=== PATIENT | male | born 1985 | race Caucasian/White ===

== ENCOUNTER 2020-03-20 17:27 | Emergency (ER) | payer BC ==
[2020-03-20] MEDS ORDERED: Sodium Chloride 0.9% 10 ML Syringe FLUSH PRN (17:54)
[2020-03-20] MEDS ORDERED: Labetalol 100 MG/20 ML MDV IVPUSH ONE ×3 (18:10→19:01)
[2020-03-20] MEDS ORDERED: amLODIPine 10 MG Tab PO ONE (19:02)
[2020-03-20] MEDS ORDERED: Hydrochlorothiazide 25 MG Tab PO ONE (19:02)
--- NOTE | 2020-03-20 19:55 | EDM.PDOC ---
ED HPI GENERAL MEDICAL PROBLEM - General Chief Complaint: Cardiovascular Problem Stated Complaint: HIGH BLOOD PRESSURE Time Seen by Provider: 03/20/20 17:39 Source of Information: Reports: Patient, RN Notes Reviewed History Limitations: Reports: No Limitations - History of Present Illness INITIAL COMMENTS - FREE TEXT/NARRATIVE: Patient is a 35-year-old male presenting to the emergency department with complaints of intermittent nosebleeds and elevated blood pressure. He was seen at [facility] prior to coming here. Blood pressure on triage was found to be 202/143. Patient states he does have a history of hypertension and that he was previously taking on lisinopril, hydrochlorothiazide, and amlodipine, however he stopped taking them in November. He denies any chest pain, headache, vision changes, or dizziness. Patient states that he had a bloody nose last evening and then a few today. - Related Data Allergies Allergy/AdvReac Type Severity Reaction Status Date / Time No Known Allergies Allergy Verified 03/20/20 17:38 Home Meds: Home Meds amLODIPine [Norvasc] 5 mg PO DAILY 30 Days #30 tab 03/20/20 [Rx] hydroCHLOROthiazide [Hydrochlorothiazide] 25 mg PO DAILY #30 tablet 03/20/20 [Rx] Past Medical History HEENT History: Reports: Epistaxis, Impaired Vision Cardiovascular History: Reports: Hypertension - Infectious Disease History Infectious Disease History: Reports: Chicken Pox, Novel Coronavirus Social & Family History - Family History Family Medical History: No Pertinent Family History Cardiac: Reports: Hypertension - Tobacco Use Tobacco Use Status *Q: Current Every Day Tobacco User Years of Tobacco use: 10 Packs/Tins Daily: 1 Used Tobacco, but Quit: No Second Hand Smoke Exposure: Yes - Caffeine Use Caffeine Use: Reports: Coffee, Soda - Recreational Drug Use Recreational Drug Use: No ED ROS GENERAL - Review of Systems Review Of Systems: Comprehensive ROS is negative, except as noted in HPI. ED EXAM, GENERAL - Physical Exam Exam: See Below General Appearance: Alert, WD/WN, No Apparent Distress Respiratory/Chest: No Respiratory Distress, Lungs Clear, Normal Breath Sounds, No Accessory Muscle Use, Chest Non-Tender Cardiovascular: Normal Peripheral Pulses, Regular Rate, Rhythm, No Edema, No Gallop, No JVD, No Murmur, No Rub GI/Abdominal: Normal Bowel Sounds, Soft, Non-Tender, No Organomegaly, No Distention, No Abnormal Bruit, No Mass Neurological: Alert, Oriented, CN II-XII Intact, Normal Cognition, Normal Gait, Normal Reflexes, No Motor/Sensory Deficits Psychiatric: Normal Affect, Normal Mood Skin Exam: Warm, Dry, Intact, Normal Color, No Rash #1 Interpretation EKG Date: 03/20/20 Time: 17:58 Rhythm: NSR Rate (Beats/Min): 76 [place]: Normal P-Wave: Present QRS: Normal ST-T: Normal QT: Normal Course - Vital Signs Last Recorded V/S: Last Vital Signs Temp 98.8 F 03/20/20 17:39 Pulse 77 03/20/20 17:39 Resp 16 03/20/20 17:39 BP 204/133 H 03/20/20 19:18 Pulse Ox 97 03/20/20 17:39 - Orders/Labs/Meds Orders: Active Orders 24 hr Category Date Time Status Peripheral IV Insertion Adult [OM.PC] Stat Oth 03/20/20 17:54 Ordered Labs: Laboratory Tests 03/20/20 03/20/20 Range/Units 18:08 18:08 WBC 6.00 (4.23-9.07) K/mm3 RBC 5.23 (4.63-6.08) M/mm3 Hgb 14.9 (13.7-17.5) gm/dl Hct 44.0 (40.1-51.0) % MCV 84.1 (79.0-92.2) fl MCH 28.5 (25.7-32.2) pg MCHC 33.9 (32.2-35.5) g/dl RDW Std Deviation 42.1 (35.1-43.9) fL Plt Count 227 (163-337) K/mm3 MPV 10.8 (9.4-12.3) fl Neut % (Auto) 55.3 (34.0-67.9) % Lymph % (Auto) 31.2 (21.8-53.1) % [place] % (Auto) 8.8 (5.3-12.2) % Eos % (Auto) 4.0 (0.8-7.0) Baso % (Auto) 0.5 (0.1-1.2) % Neut # (Auto) 3.32 (1.78-5.38) K/mm3 Lymph # (Auto) 1.87 (1.32-3.57) K/mm3 [place] # (Auto) 0.53 (0.30-0.82) K/mm3 Eos # (Auto) 0.24 (0.04-0.54) K/mm3 Baso # (Auto) 0.03 (0.01-0.08) K/mm3 Sodium 142 (136-145) mEq/L Potassium 3.6 (3.5-5.1) mEq/L Chloride 105 (98-107) mEq/L Carbon Dioxide 27 (21-32) mEq/L Anion Gap 13.6 (5-15) BUN 15 (7-18) mg/dL Creatinine 1.1 (0.7-1.3) mg/dL Est Cr Clr Drug Dosing 97.93 mL/min Estimated GFR (MDRD) > 60 (>60) mL/min BUN/Creatinine Ratio 13.6 L (14-18) Glucose 88 (74-106) mg/dL Calcium 8.9 (8.5-10.1) mg/dL Total Bilirubin 0.4 (0.2-1.0) mg/dL AST 18 (15-37) U/L ALT 35 (16-63) U/L Alkaline Phosphatase 63 (46-116) U/L Troponin I < 0.017 (0.00-0.056) ng/mL Total Protein 7.7 (6.4-8.2) g/dl Albumin 4.1 (3.4-5.0) g/dl Globulin 3.6 gm/dL Albumin/Globulin Ratio 1.1 (1-2) TSH 3rd Generation 0.993 (0.358-3.74) uIU/mL Meds: Medications Discontinued Medications Generic Name Dose Route Start Last Admin Trade Name Freq PRN Reason Stop Dose Admin Amlodipine Besylate 10 mg 03/20/20 19:02 03/20/20 19:18 Norvasc PO 03/20/20 19:03 10 mg ONETIME ONE Administration Hydrochlorothiazide 25 mg 03/20/20 19:02 03/20/20 19:35 Hydrochlorothiazide PO 03/20/20 19:03 25 mg ONETIME ONE Administration Labetalol HCl 10 mg 03/20/20 18:10 03/20/20 18:17 Normodyne IVPUSH 03/20/20 18:11 10 mg ONETIME ONE Administration Protocol Labetalol HCl 10 mg 03/20/20 18:41 03/20/20 18:44 Normodyne IVPUSH 03/20/20 18:42 10 mg ONETIME ONE Administration Protocol Labetalol HCl 10 mg 03/20/20 19:01 03/20/20 19:19 Normodyne IVPUSH 03/20/20 19:02 10 mg ONETIME ONE Administration Protocol Sodium Chloride 10 ml 03/20/20 17:54 03/20/20 18:24 Saline Flush FLUSH 10 ml ASDIRECTED PRN Administration Keep Vein Open - Re-Assessments/Exams Free Text/Narrative Re-Assessment/Exam: Patient is a 35-year-old male presenting to the emergency department with complaints of hypertension and bloody noses. Exam is grossly unremarkable. I ordered blood work, EKG, and peripheral IV. I will give labetalol 10 mg IV. 03/20/20 19:56 After 3 doses of labetalol 10 mg, blood pressure has come down to 182/136. Patient would like to go home as he has to work in the morning. He has been given Norvasc 10 mg as well as hydrochlorothiazide 25 mg. This should further decrease his blood pressure. I will write a prescription for Norvasc and hydrochlorothiazide. Recommend monitoring his blood pressures a couple times a day and take a log to his primary care provider. Recommend follow-up with his PCP on Friday for further management of his blood pressure. Discharge instructions as document. Departure - Departure Time of Disposition: 19:57 Disposition: Home, Self-Care 01 Condition: Good Clinical Impression: Hypertension Qualifiers: Hypertension type: unspecified Qualified Code(s): I10 - Essential (primary) hypertension Prescriptions: hydroCHLOROthiazide [Hydrochlorothiazide] 25 mg PO DAILY #30 tablet amLODIPine [Norvasc] 5 mg PO DAILY 30 Days #30 tab Instructions: Hypertension, Adult, [id number] Referrals: Zach Lorenzo MD [Primary Care Provider] - Forms: ED Department Discharge Additional Instructions: You were seen in the emergency department this evening for elevated blood pressure with intermittent bloody noses. Blood work and EKG were done and found to be normal. You received blood pressure medications through your IV as well as your first dose of amlodipine and hydrochlorothiazide. A prescription for amlodipine and hydrochlorothiazide has been sent to [facility]. Take these medications as prescribed. Recommend checking your blood pressure at home a couple times a day and keep a log of the readings. Schedule an appointment with your primary care provider on Friday of this week for ongoing management of your blood pressure as you will likely require additional medications. Return to ER as needed. Sepsis Event Note (ED) - Evaluation Sepsis Screening Result: No Definite Risk - Focused Exam Vital Signs: Vital Signs Temp Pulse Resp BP BP Pulse Ox 03/20/20 19:18 204/133 H 03/20/20 17:39 98.8 F 77 16 202/143 H 97 - My Orders Last 24 Hours: My Active Orders 03/20/20 17:54 Peripheral IV Insertion Adult [OM.PC] Stat - Assessment/Plan Last 24 Hours: My Active Orders 03/20/20 17:54 Peripheral IV Insertion Adult [OM.PC] Stat
== END 2020-03-20 20:10 | disposition home or self-care (01) ==
LOC: JD.ED 17:27
DX: I10 Essential (primary) hypertension (principal); Z79.899 Other long term (current) drug therapy; Z72.0 Tobacco use
CPT/HCPCS: 36415; 80053; 84443; 84484; 85025; 93005; 96374; 96376; 99283; A9270; J3490; 93010